=== PATIENT | male | born 1955 | race Caucasian/White ===

== ENCOUNTER 2021-04-25 01:10 | Outpatient (CLI) | payer BC, SELFPAY ==
--- NOTE | 2021-04-25 07:00 | DI.MRI_ITS ---
Exam(s) MR IAC BRAIN WO/W EXAM: MR IAC BRAIN WO/W CLINICAL HISTORY: left >roght sn HEARING LOSS,H90.3,IMPAIRMENT SPEECH. TECHNIQUE: Multiplanar multisequence MRI of the brain and internal auditory canals was performed. CONTRAST MATERIAL: IV Contrast: 20 mL of Magnevist contrast administered. COMPARISON: No exams were available for comparison FINDINGS: VENTRICLES AND EXTRA AXIAL SPACES: Normal in size and morphology for the patient's age. HEMORRHAGE: No acute intracranial hemorrhage. CEREBRAL PARENCHYMA: No focus of restricted diffusion to suggest acute infarct. No space-occupying le beatriz identified. MIDLINE SHIFT: None. BRAINSTEM/CEREBELLUM: Normal. CALVARIUM: Normal. ENHANCEMENT: No suspicious enhancement identified. VISUALIZED PARANASAL SINUSES/MASTOIDS: Clear. LIME OF ELAM: Normal flow void. PITUITARY GLAND: Unremarkable. IAC/CP ANGLE: The internal auditory canals are within normal limits. The cerebellar pontine angles ar e unremarkable. No enhancing lesions are seen. Visualized portion of the facial nerves appear within normal limits. OTHER FINDINGS: None. IMPRESSION: No intracranial mass or enhancing lesions. DATA REPOSITORY:
[2021-04-25 13:16] LABS: CREATININE 0.9 mg/dL (0.70-1.30)
[2021-04-25] MEDS: Normal Saline Flush 10 ML SYR IVP (13:38)
[2021-04-25] MEDS: Gadoterate meglumine 20 ML VIAL IVP (13:39)
== END 2021-04-25 01:30 ==
PROVIDERS: PCP Internal Medicine; Visit Provider Otolaryngology
DX: H90.3 Sensorineural hearing loss, bilateral (principal); R47.89 Other speech disturbances; Z01.812 Encounter for preprocedural laboratory examination
CPT/HCPCS: 70553; 82565